=== PATIENT | female | born 1930 | race Caucasian/White ===

== ENCOUNTER 2020-11-18 22:39 | Inpatient (IN) | payer OTHER, MEDICARE, SELFPAY ==
[~2020-11-18] VITALS: Ht 152.4 cm; Wt 99.8 kg
--- NOTE | 2020-11-18 22:40 | NUR ---
PT ED ALS. TAKEN TO BED 2
--- NOTE | 2020-11-18 22:45 | NUR ---
PT CONNECTED TO THE PROFESSOR OF BUSINESS. PT ON 3 L NC. BED IS LOCKED AND IN LOWEST POSITION. NO ACUTE DISTRESS NOTED. SIDE RAILSX2 FOR ALOC AND PT PROTECTION. CALL LIGHT WITHIN REACH.
--- NOTE | 2020-11-18 22:45 | NUR ---
89 Y/O FEMALE BIBA FROM [facility] WITH CHIEF C/O INCREASING ALOC AND UNRESPONSIVENESS X1 WK. A/OX0. GCS 10. PERRL. NO UNLILATERAL DEFICITS NOTED. CAP REFILL<3. PULSES+2 THROUGHOUT. DIMINISHED LUNG SOUNDS THROUGHOUT. SINUS TACHY ON THE GAS DISTRIBUTION AND EMERGENCY CLERK. NO SOB NOTED. S1, S2, NOTED NO EXTRA HEART SOUNDS. NON PITTING EDEMA TO BILATERAL UPPER AND LOWER EXTREMITIES. REDNESS NOTED TO RIGHT UPPER EXTREMITY WITH NON PITTNG EDEMA. PER EMS NO N/V/DIARRHEA/FEVER AT [facility]. PMH:ACUTE RESP FAILURE, HTN, OSTEOARTHRITIS, DVT, CHRONIC PAIN SYNDROME. ALLERGIES: PENICILLINS, CEPHALEXIN, NEOSPORIN
[2020-11-18 22:52] VITALS: BP 170/88
--- NOTE | 2020-11-18 23:32 | NUR ---
EKG PERFORMED AT BEDSIDE. EKG READS SINUS TACHYCARDIA @ 114
--- NOTE | 2020-11-18 23:35 | NUR ---
S/W JAQUELINE, DAUGHTER TO GIVE BRIEF UPDATE. NUMBER PROVIDED---- [phone]
[2020-11-18 23:45] LABS: BASOPHILS % (AUTO) 0.2 % (0.0-2.0); EOSINOPHILS # (AUTO) 0.1 K/uL (0-0.4); EOSINOPHILS % (AUTO) 1.7 % (0.0-4.0); HEMATOCRIT 36.2 % (36-48); HEMOGLOBIN 11.6 g/dL (12.0-16.0); LYMPHOCYTES # (AUTO) 0.5 K/uL (2.5-16.5); LYMPHOCYTES % (AUTO) 7.3 % (20.5-51.1); MEAN CORPUSCULAR HEMOGLOBIN 26 pg (27-31); MEAN CORPUSCULAR HGB CONC 32 g/dL (33-37); MEAN CORPUSCULAR VOLUME 81.7 fL (80-94); MONOCYTES # (AUTO) 0.4 K/uL (0.8-1.0); MONOCYTES % (AUTO) 5.8 % (1.7-9.3); NEUTROPHILS # (AUTO) 6.4 K/uL (1.8-7.7); PLATELET COUNT (AUTO) 212 K/uL (140-450); RED BLOOD CELL COUNT(AUTO) 4.43 MIL/uL (4.20-5.40); RED CELL DISTRIBUTION WIDTH 15.9 % (11.6-13.7); WHITE BLOOD COUNT (AUTO) 7.5 K/uL (4.8-10.8)
--- NOTE | 2020-11-18 23:45 | NUR ---
PT IS ASLEEP AND SNORING. VISIBLE RISE AND FALL OF CHEST NOTED CONNECTED TO THE FOOD PRODUCTS SALES REPRESENTATIVE. PT ON 3 L NC. BED IS LOCKED AND IN LOWEST POSITION. NO ACUTE DISTRESS NOTED. SIDE RAILSX2 FOR ALOC AND PT PROTECTION. CALL LIGHT WITHIN REACH.
[2020-11-18] MEDS ORDERED: NACL 0.9% 1,000 ML IV ONE (23:50)
--- NOTE | 2020-11-19 | NUR ---
CALLED PT'S HOME FACILITY X3 TO GET A MEDICATION RECONCILATION WITH NO ANSWER. UNABLE TO COMPLETE MED REC AT THIS TIME.
[2020-11-19 00:05] LABS: ANION GAP 14.4 (8-16); ASPARTATE AMINOTRANSFERASE 12 U/L (15-37); CARBON DIOXIDE 27.1 mmol/L (21-32); CHLORIDE 101 mmol/L (98-107); CREATININE 1.2 mg/dL (0.6-1.3); GLUCOSE 133 mg/dL (74-106); POTASSIUM 3.5 mmol/L (3.5-5.1); SODIUM SERUM 139 mmol/L (136-145); TOTAL BILIRUBIN 0.4 mg/dL (0.0-1.0); UREA NITROGEN, BLOOD 28 mg/dL (7-18)
[2020-11-19 00:06] LABS: ACETAMINOPHEN < 0.5 ug/ml (10-30); SALICYLATE < 2.8 mg/dL (2.8-20.0)
--- NOTE | 2020-11-19 00:20 | NUR ---
LACTIC ACID 2.3
--- NOTE | 2020-11-19 00:30 | NUR ---
PT IS ASLEEP IN SEMI FOWLERS POSITION. VISIBLE RISE AND FALL OF CHEST NOTED, PT CONNECTED TO THE SENIOR SOFTWARE ENGINEER. PT ON 3 L NC. BED IS LOCKED AND IN LOWEST POSITION. NO ACUTE DISTRESS NOTED. SIDE RAILSX2 FOR ALOC AND PT PROTECTION. CALL LIGHT WITHIN REACH.
[2020-11-19] MEDS ORDERED: MEROPENEM 1,000 MG in NACL 0.9% 100 ML IV ONE (01:25)
--- NOTE | 2020-11-19 01:35 | NUR ---
INSERTED STRAIGHT CATHETER, 150 ML OF YELLOW URINE RETURNED. REMOVED STRAIGHT CATHETER, PT TOLERATED WELL.
[2020-11-19] MEDS ORDERED: MEROPENEM 1,000 MG VIAL IV ONE (01:52)
[2020-11-19 02:19] LABS: APPEARANCE,URINE CLEAR (CLEAR); BILIRUBIN,URINE NEGATIVE (NEGATIVE); BLOOD, URINE NEGATIVE (NEGATIVE); COLOR,URINE YELLOW (YELLOW); LEUKOCYTE ESTERASE ,URINE NEGATIVE (NEGATIVE); NITRITE, URINE NEGATIVE (NEGATIVE); PH,URINE 5.5 (5.0-9.0); UGLUCOSE NEGATIVE (NEGATIVE)
--- NOTE | 2020-11-19 02:41 | NUR ---
PT RETURNED FROM [facility]IA [facility].
[2020-11-19 02:55] LABS: BARBITURATE, URINE NEGATIVE ng/ml (NEG <=200); BENZODIAZEPINE, URINE POSITIVE ng/mL (NEG <=200); COCAINE, URINE NEGATIVE ng/mL (NEG <=300)
[2020-11-19 02:56] LABS: CANNABINOID, URINE NEGATIVE ng/mL (NEG <=50); OPIATE, URINE POSITIVE ng/mL (NEG <=2000); PHENCYCLIDINE SCREEN,URINE NEGATIVE ng/mL (NEG <=25)
--- NOTE | 2020-11-19 03:00 | NUR ---
PT CONNECTED TO THE DEPARTMENT OPERATIONS MANAGER. PT ON 3 L NC. BED IS LOCKED AND IN LOWEST POSITION. NO ACUTE DISTRESS NOTED. SIDE RAILSX2 FOR ALOC AND PT PROTECTION. CALL LIGHT WITHIN REACH.
--- NOTE | 2020-11-19 04:00 | NUR ---
PT IS SNORING, VISIBLE RISE AND FALL OF CHEST NOED.CONNECTED TO THE JAVASCRIPT SOFTWARE ENGINEER. PT ON 3 L NC. BED IS LOCKED AND IN LOWEST POSITION. NO ACUTE DISTRESS NOTED. SIDE RAILSX2 FOR ALOC AND PT PROTECTION. CALL LIGHT WITHIN REACH.
[2020-11-19] MEDS ORDERED: NALOXONE 0.4 MG/ML VIAL IVP ONE (04:05)
--- NOTE | 2020-11-19 04:39 | NUR ---
SPOKE WITH THE DAUGHTER JAQUELINE TO GIVE PT STATUS UPDATE
--- NOTE | 2020-11-19 05:00 | NUR ---
PT CONNECTED TO THE ADHESIVE BANDAGE MACHINE OPERATOR. PT ON 3 L NC. BED IS LOCKED AND IN LOWEST POSITION. NO ACUTE DISTRESS NOTED. SIDE RAILSX2 FOR ALOC AND PT PROTECTION. CALL LIGHT WITHIN REACH.
--- NOTE | 2020-11-19 06:00 | NUR ---
PT IS IN SEMI FOWLERS POSITION. NS RUNNING PER MD ORDERS. PT IS CONNECTED TO THE ASSISTANT PARALEGAL. PT ON 3 L NC. BED IS LOCKED AND IN LOWEST POSITION. NO ACUTE DISTRESS NOTED. SIDE RAILSX2 FOR ALOC AND PT PROTECTION. CALL LIGHT WITHIN REACH.
--- NOTE | 2020-11-19 06:50 | NUR ---
SPOKE WITH DANIELLE George FROM [facility] THAT THE PT IS FROM, UPDATED HER THAT THE PT IS STILL HERE AT THIS TIME.
--- NOTE | 2020-11-19 07:15 | NUR ---
RECEIVED ENDORSEMENT FROM MANUFACTURING INSPECTOR, AWAKE,ALERT,ORIENTEDX3, WITH O2 AT 4L/MIN VIA NC, [id number]% NOT IN DISTRESS NOTED, ADMITTED A CASE OF POLYPHARMACY ABUSE AND ENCEPHALOPATHY UNDER DR. MIJARES. WITH IV CANNULA G20 AT LEFT ON SALINE LOCK, SAFETY MEASURESIN PLACE AND CONTINUE MONITOR. SKIN IS INTACT
--- NOTE | 2020-11-19 07:15 | NUR ---
GAVE REPORT TO MALU HERNANDEZ FOR TRANSFER OF CARE AT THIS TIME
[2020-11-19] MEDS ORDERED: ZOLPIDEM 5 MG TAB PO PRN (07:50)
[2020-11-19] MEDS ORDERED: ONDANSETRON 4 MG/2 ML VIAL IVP PRN (07:50)
[2020-11-19] MEDS ORDERED: HYDROcodone/APAP 5/325 MG 1 TAB TAB PO PRN (07:50)
[2020-11-19] MEDS ORDERED: LORazepam 2 MG/ML VIAL IM/IVP PRN (07:50)
[2020-11-19] MEDS ORDERED: DOCUSATE SODIUM 100 MG GELCAP PO PRN (07:50)
[2020-11-19] MEDS ORDERED: MORPHINE SULFATE 2 MG/ML SYR IVP PRN (07:50)
[2020-11-19] MEDS ORDERED: ACETAMINOPHEN 325 MG TAB PO PRN (07:50)
[2020-11-19] MEDS ORDERED: bisacodyL 10 MG SUPP RC SCH (08:03)
[2020-11-19] MEDS: NACL 0.9% 1,000 ML IV SCH ×2 (08:10→17:22)
--- NOTE | 2020-11-19 08:45 | NUR ---
ENDORSED TO MST RN IN STABLE CONDITON FOR CONTINUITY OF CARE
[2020-11-19 09:00] VITALS: BP 117/79
--- NOTE | 2020-11-19 09:28 | NUR ---
RECEIVED PATIENT FROM ED NURSE, MARY. PATIENT AWAKE AND ALERT. ORIENTED TO PERSON AND PLACE. RESP EVEN AND UNLABORED ON 4L NC. DENIED OF DISCOMFORT AT THIS TIME. SPEECH IS SLOW BUT CLEAR. ABLE TO MAKE NEEDS KNOWN AND FOLLOW SIMPLE COMMANDS. LW 20G INFUSING NS 100ML/HR. SKIN WARM TO TOUCH AND INTACT. NOTED BRUISING BUT SKIN IS INTACT. LUNGS CLEAR. BOWEL SOUNDS PRESENT. NO NOTED EDEMA AT THIS TIME. MRSA COLLECTED AND SENT TO LAB. BED ALARM ACTIVATED. DR LOPES AT BEDSIDE. PLAN OF CARE DISCUSSED. PATIENT VERBALIZED UNDERSTANDING. HOB ELEVATED. CALL LIGHT WITHIN REACH. WILL CONTINUE TO MONITOR.
--- NOTE | 2020-11-19 09:31 | NUR ---
CALLED AND SPOKE TO PAYTON RN TEACHER AT [facility] AT [phone]. PATIENT RECENTLY RECEIVED COVID VACCINATION. LIST OF MEDICATIONS REQUESTED PER DR LOPES.
[2020-11-19] MEDS: POLYETHYLENE GLYCOL 17 GM/PKT PO SCH (09:41)
[2020-11-19 09:47] LABS: BASOPHILS % (AUTO) 0.2 % (0.0-2.0); EOSINOPHILS # (AUTO) 0.2 K/uL (0-0.4); HEMATOCRIT 35.2 % (36-48); HEMOGLOBIN 11.1 g/dL (12.0-16.0); LYMPHOCYTES # (AUTO) 0.5 K/uL (2.5-16.5); LYMPHOCYTES % (AUTO) 7.5 % (20.5-51.1); MEAN CORPUSCULAR HEMOGLOBIN 26 pg (27-31); MEAN CORPUSCULAR HGB CONC 32 g/dL (33-37); MEAN CORPUSCULAR VOLUME 82.1 fL (80-94); MONOCYTES # (AUTO) 0.5 K/uL (0.8-1.0); MONOCYTES % (AUTO) 7.5 % (1.7-9.3); NEUTROPHILS % (AUTO) 80.8 % (42.2-75.2); PLATELET COUNT (AUTO) 210 K/uL (140-450); RED BLOOD CELL COUNT(AUTO) 4.28 MIL/uL (4.20-5.40); RED CELL DISTRIBUTION WIDTH 15.9 % (11.6-13.7); WHITE BLOOD COUNT (AUTO) 6.2 K/uL (4.8-10.8)
[2020-11-19 10:00] LABS: ALBUMIN 2.8 g/dL (3.4-5.0); ASPARTATE AMINOTRANSFERASE 17 U/L (15-37); CARBON DIOXIDE 30.4 mmol/L (21-32); CHLORIDE 103 mmol/L (98-107); CREATININE 0.8 mg/dL (0.6-1.3); GLUCOSE 100 mg/dL (74-106); POTASSIUM 3.4 mmol/L (3.5-5.1); SODIUM SERUM 140 mmol/L (136-145); TOTAL BILIRUBIN 0.4 mg/dL (0.0-1.0); UREA NITROGEN, BLOOD 25 mg/dL (7-18)
--- NOTE | 2020-11-19 10:10 | NUR ---
LIST OF MEDICATIONS RECEIVED FROM [facility]. LIST GIVEN TO DR LOPES.
[2020-11-19 10:27] LABS: PROTHROMBIN TIME 11.3 secs (10.8-13.4)
[2020-11-19 10:38] LABS: FREE T4 (FREE THYROXINE) 1.12 ng/dL (0.76-1.46); MAGNESIUM 1.9 mg/dL (1.8-2.4); PHOSPHORUS 3.2 mg/dL (2.5-4.9); THYROID STIMULATING HORMONE 1.61 uIU/mL (0.34-3.74)
--- NOTE | 2020-11-19 11:46 | NUR ---
PATIENT IN BED AWAKE AND ALERT. ASKING FOR DAUGHTER TO BRING HER SHOES. PATIENT WANTS TO GET UP AND WALK BUT ENCOURAGED TO WAIT FOR PT ASSIST. PATIENT VERBALIZED UNDERSTANDING. RESP EVEN AND UNLABORED ON 4L NC. NO NOTED DISTRESS. CALL LIGHT WITHIN REACH. WILL CONTINUE TO MONITOR.
[2020-11-19 11:47] LABS: CHOL/HDL RATIO 3.6 (1-4.5)
[2020-11-19 12:00] VITALS: BP 128/80
--- NOTE | 2020-11-19 12:12 | NUR ---
PT C/O BODY GENERALIZED PAIN. MORPHINE GIVEN ORDERED. VITALS WNL. RESP EVEN AND UNLABORED. WILL CONTINUE TO MONITOR.
--- NOTE | 2020-11-19 13:11 | NUR ---
POTASSIUM 3.4, REPORTED TO DR LOPES. RECEIVED ORDER FOR KDUR 20 MEQ PO PRN FOR POTASSIUM LESS THAN 3.5, ORDER CARRIED OUT
[2020-11-19] MEDS: POTASSIUM CHLORIDE 10 MEQ TABER PO PRN (13:34)
--- NOTE | 2020-11-19 14:02 | NUR ---
SOCIAL WORK NOTE: Patient's Orientation Unable To Assess Information Provided By JAQUELINE GAMEZ - DAUGHTER Comments SW WAS UNABLE TO MEET PATIENT AT BEDSIDE. SW COMPLETED ASSESSMENT WITH PATIENT'S DAUGHTER. Human Resources Services Specialist, Realtionship and Phone Number JAQUELINE BARNETT [phone] [facility] Power of Courtroom Deputy No Does Patient Have a POLST No Identifying Problems No Social Work Triggers Is A Social Work Consult Needed No Mandate Report Filed No Explanation Of Identifying Problems PATIENT IS AN 89-YEAR-OLD FEMALE ADMITTED FOR METABOLIC ENCEPHALOPATHY. 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 PATIENT WAS ADMITTED FROM [facility]. Admitted From Assisted Living/Resident Hospice Provider [facility] - [phone] Pre-Admission Level Of Functioning Status Total Care Prior Resources/Services Used In Last 12 Months Board & Care Prior Resources/Service Comments PATIENT IS A RESIDENT OF [facility]. Prior DME No Prior DME Used Wheelchair Dialysis Comments N/A Living Situation Asst'd Living/[facility] Patient Had Caregiver No Home Support No Caregiver Issues Financial Issues No Known Financial Issue Referral To The Financial Counselor Needed No Factors/Needs No D/C Needs Identified Pt/Rep Participated In Discharge Plan Yes Patient/Family Agress With Discharge Plan Yes Discharge Plan Comments TENTATIVE DISCHARGE PLAN IS FOR PATIENT TO RETURN TO [facility]. DC Plan Status Initiated Addendum: 11/19/20 at 1513 by Cayetano WU MOSES CONTACTED PAYTON - ADMIN OF [facility] [phone] TO ASK IF PATIENT HAS ACCESS TO HER MEDICATION. PER PAYTON, AND PATIENT'S DAUGHTER, JAQUELINE MEENDERING [phone], [facility]. PAYTON AND JAQUELINE BOTH STATED THAT PATIENT'S MEDICATION HAS BEEN ADJUSTED AND THAT HER MORPHINE DOSE WAS DOUBLED TWO DAYS BEFORE HOSPITALIZATION. SW NOTIFIED RIGO SEARS.
--- NOTE | 2020-11-19 14:23 | NUR ---
PATIENT IN BED AWAKE AND ALERT. ORAL CARE PROVIDED. PATIENT WAS ASSISTED WITH NUTRITION. PATIENT HAS WEAKNESS IN HER RIGHT ARM AND UNABLE TO FEED SELF EFFECTIVELY. PATIENT TOLERATED WELL. ABLE TO MAKE NEEDS KNOWN. CALL LIGHT WITHIN REACH. WILL CONTINUE TO MONITOR.
--- NOTE | 2020-11-19 14:58 | NUR ---
DC PLANNIN YRS OLD FEMALE PATIENT WAS ADMITTED FROM [facility] ) WITH A DX OF METABOLIC ENCEPHALOPATHY, POLYPHARMACY ABUSE. PT HAS A HX OF CHRONIC RESPIRATORY FAILURE ON O2 , HTN, OSTEOPOROSIS, HIATAL HERNIA AND DVT. CXR SHOWED RIGHT INFRAHILAR ATELECTASIS VS SCARING. RAPID COVID TEST NEGATIVE AND PCR IS PENDING. CT HEAD NEGATIVE. CT ABD/PELVIS SHOWED COLONIC DIVERTICULOSIS AND XRAY OF RT SHOULDER SHOWED SUPERIOR MIGRATION OF THE NUMERAL HEAD RELATIVE TO THE GLENOID LIKELY REPRESENTING ROTATOR CUFF TEAR. CONSULTED WITH PULMO. DC PLAN TO GO BACK TO ASSISTED LIVING. CM TO FOLLOW Addendum: 11/20/[address] RN DC PLANNING: SPOKE WITH PT'S DAUGHTER JAQUELINE STATED HER MOTHER HAS NO ACCESS TO HER MEDICATIONS, SHE IS WITH PRE[facility]IOUS HOSPICE CARE, AND HER CONCERN IS THE FACILITY WON'T DO THE PHYSICAL THERAPY THEY ONLY DO THE VIDEO ZOOMING EXERCISE AND HER MOM WON'T GET AND BENEFIT FROM IT. I ASKED HER IF SHE WANTED HER TO GO TO ANOTHER FACILITY AND TO CONTINUE WITH THE HOSPICE , JAQUELINE STATED SHE IS TALKING TO HER PCP AND WILL DECIDE. I TRANSFERRED THE PHONE TO THE NURSE TO TALK TO HER MOM AND TO DISCUSS TO GO TO ANOTHER FACILITY TO GET PHYSICAL THERAPY. CM TO FOLLOW Addendum: 11/20/20 at 1441 by Janet Sheth CM LONG SANITATION WORKER CLEANING MACHINERY: SPOKE TO PATIENTS DAUGHTER TO DISCUSS SNF FOR PT. SHE IS CONCERNED WITH HER MOTHER GOING TO SNF BECAUSE OF A BAD EXPERIENCE PATIENT HAD BEFORE. SHE IS ALSO CONCERNED THAT IF PATIENT GOES TO SNF PATIENT WILL HAVE TO BE TAKEN OFF OF HOSPICE. SHE STATED THAT MEDICARE USED UP ALL OF SNF DAYS AND IF PATIENT GOES TO SNF THEY WILL HAVE TO PAY OUT OF POCKET. SHE WILL CONTACT [facility] TO SEE IF THEY HAVE ANY RESOURCES FOR PT Addendum: 11/20/20 at 1556 by Janet Sheth CM LONG SANITATION WORKER CLEANING MACHINERY: RECEIVED A PHONE CALL FROM PATIENTS DAUGHTER SHE SPOKE TO [facility]. THEY ARE ABLE TP ARRANGE HOME HEALTH FOR PT FOR PATIENT. Addendum: 11/22/20 at 1123 by Janet Sheth CM DC SANITATION WORKER CLEANING MACHINERY: SPOKE TO CHINMAY AT [facility] REGARDING DISCHARGE. THEY DO NOT PROVIDE TRANSPORTATION FOR PATIENT. SPOKE TO RIVET MACHINE OPERATOR [place] [facility] MAY USE [facility] FOR TRANSPORTATION. CHINMAY WAS CONCERNED WITH THE MRSA CONTACTED DR. LUCITA LUNDBERG STATED THAT IT WAS COLONIZED. Addendum: 11/22/20 at 1438 by Janet Sheth CM DC SANITATION WORKER CLEANING MACHINERY: PATIENT IS ABLE TO RETURN TO [facility]. SPOKE TO PATIENTS DAUGHTER TO LET HER KNOW THAT EVERYTHING HAS BEEN ARRANGED FOR PATIENT NOTIFIED MALU BRADY THAT MAORI PHYSIOTHERAPIST TIME IS 4:00 PM WITH [facility]
[2020-11-19 16:00] VITALS: BP 133/88
[2020-11-19] MEDS ORDERED: oxyCODONE 10 MG TABER PO PRN (16:15)
--- NOTE | 2020-11-19 16:18 | NUR ---
PATIENT HAS BEEN SCREENED AND CATEGORIZED MODERATE NUTRITION RISK. PATIENT WILL BE SEEN WITHIN 3-5 DAYS OF ADMISSION. 11/21/20 11/23/[address]
--- NOTE | 2020-11-19 17:05 | NUR ---
ROUTINE MEDICATIONS GIVEN. PATIENT TOLERATED WELL. FLUIDS GIVEN. NUTRITION OFFERED, BUT PATIENT REFUSED. PATIENT AWAKE AND ALERT. ABLE TO MAKE NEEDS KNOWN. DENIED OF PAIN AT THIS TIME. CALL LIGHT WITHIN REACH. WILL CONTINUE TO MONITOR.
[2020-11-19] MEDS: FAMOTIDINE 20 MG TAB PO SCH (17:20)
[2020-11-19] MEDS: GABAPENTIN 300 MG CAP PO SCH (17:20)
[2020-11-19] MEDS: rOPINIRole 0.25 MG TAB PO SCH (17:20)
[2020-11-19] MEDS: FUROSEMIDE 40 MG TAB PO SCH (17:20)
--- NOTE | 2020-11-19 19:15 | NUR ---
ENDORSED PATIENT TO NIGHT NURSE. PATIENT IN STABLE CONDITION.
[2020-11-19 20:00] VITALS: BP 107/66
[2020-11-19] MEDS: traZODone 50 MG TAB PO SCH (20:45)
[2020-11-19] MEDS: MORPHINE TAB ER 15 MG TABER PO SCH (20:47)
[2020-11-19] MEDS: ALPRAZolam 0.5 MG TAB PO SCH (20:49)
--- NOTE | 2020-11-19 21:00 | NUR ---
Received patient from am shit 0 s/s of distress even and unlabored chest rise. Patient complained of pain during assessment and when care was being provided and scheduled pain medications were given. After receiving scheduled medications there were 0 s/s of distress present and patient fell asleep. Patient pulled out her own IV line so a new line was placed on her right hand 22 G and it is patent infusing with 100ml NS. Patient is currently resting and will continue to monitor through out the shift.
[2020-11-20] VITALS: BP 114/95
--- NOTE | 2020-11-20 02:00 | NUR ---
Patient is currently sleeping with 0 s/s of distress at this time. Will continue to monitor for any changes all needs have been currently met.
[2020-11-20] MEDS: NACL 0.9% 1,000 ML IV SCH ×3 (03:50→23:50)
[2020-11-20 04:00] VITALS: BP 112/72
--- NOTE | 2020-11-20 06:50 | NUR ---
Patient is currently resting with 0 s/s of distress and no C/O discomfort. Will endorse further care to am shift for continuity of care.
[2020-11-20 07:10] LABS: BASOPHILS % (AUTO) 0.7 % (0.0-2.0); EOSINOPHILS # (AUTO) 0.5 K/uL (0-0.4); EOSINOPHILS % (AUTO) 7.2 % (0.0-4.0); HEMATOCRIT 34.7 % (36-48); LYMPHOCYTES # (AUTO) 0.8 K/uL (2.5-16.5); LYMPHOCYTES % (AUTO) 11.5 % (20.5-51.1); MEAN CORPUSCULAR HEMOGLOBIN 26 pg (27-31); MEAN CORPUSCULAR HGB CONC 32 g/dL (33-37); MEAN CORPUSCULAR VOLUME 81.3 fL (80-94); MONOCYTES # (AUTO) 0.5 K/uL (0.8-1.0); MONOCYTES % (AUTO) 6.9 % (1.7-9.3); NEUTROPHILS # (AUTO) 4.9 K/uL (1.8-7.7); NEUTROPHILS % (AUTO) 73.7 % (42.2-75.2); PLATELET COUNT (AUTO) 199 K/uL (140-450); RED BLOOD CELL COUNT(AUTO) 4.27 MIL/uL (4.20-5.40); RED CELL DISTRIBUTION WIDTH 16.2 % (11.6-13.7); WHITE BLOOD COUNT (AUTO) 6.6 K/uL (4.8-10.8)
--- NOTE | 2020-11-20 07:10 | NUR ---
REC'D REPORT FROM BOLOGNA MAKER NURSE, PT SLEEPING, 4L NC. R. THUMB 22 G, INFUSING NS AT 100ML/HR. NO SIGN OF DISTRESS, CALL LIGHT WITHIN REACH
[2020-11-20 07:12] LABS: ANION GAP 8.1 (8-16); CARBON DIOXIDE 34.2 mmol/L (21-32); CHLORIDE 103 mmol/L (98-107); CREATININE 0.7 mg/dL (0.6-1.3); GLUCOSE 85 mg/dL (74-106); POTASSIUM 3.3 mmol/L (3.5-5.1); SODIUM SERUM 142 mmol/L (136-145); UREA NITROGEN, BLOOD 14 mg/dL (7-18)
[2020-11-20 07:16] LABS: MAGNESIUM 1.8 mg/dL (1.8-2.4); PHOSPHORUS 2.3 mg/dL (2.5-4.9)
[2020-11-20 08:00] VITALS: BP 131/69
[2020-11-20] MEDS: LORATADINE 10 MG TAB PO SCH (08:45)
[2020-11-20] MEDS: GABAPENTIN 300 MG CAP PO SCH ×3 (08:46→17:43)
[2020-11-20] MEDS: RIVAROXABAN 10 MG TAB PO SCH (08:46)
[2020-11-20] MEDS: MORPHINE TAB ER 15 MG TABER PO SCH ×3 (08:47→21:34)
[2020-11-20] MEDS: FUROSEMIDE 40 MG TAB PO SCH ×2 (08:47→17:43)
[2020-11-20] MEDS: POLYETHYLENE GLYCOL 17 GM/PKT PO SCH (08:48)
--- NOTE | 2020-11-20 09:13 | NUR ---
ADMINISTERED MEDICATIONS PER MD ORDER, PT ABLE TO SWALLOW PILLS AND LIQUID MEDICATIONS, A/Ox3, STATED SHE CAN SELF FEED. PT TOLERATED PROCEDURE WELL. STATES SHE CURRENTLY DOES NOT HAVE PAIN AT THIS TIME, REFUSED MORPHINE PO MED, RETURNED TO PHARMACY. PT CALL LIGHT WITHIN REACH.
--- NOTE | 2020-11-20 11:30 | NUR ---
PT DAUGHTER JAQUELINE CALLED TO SPEAK TO MOTHER, CALLED DAUGHTER FROM HOSPITAL PHONE. PT ABLE TO SPEAK TO FAMILY MEMBER. STABLE
[2020-11-20 12:00] VITALS: BP 121/94
--- NOTE | 2020-11-20 13:01 | NUR ---
PT STABLE, NO SIGN OF DISTRESS ,CAN SELF FEED.
[2020-11-20] MEDS: POTASSIUM CHLORIDE 10 MEQ TABER PO PRN (14:47)
--- NOTE | 2020-11-20 15:09 | NUR ---
Good THUMB 24G IV SITE BECAME INFILTRATED, EDEMA, REMOVED IV CATHETER, INTACT. INFUSION STOPPED. WILL CONTINUE TO MONITOR
[2020-11-20 16:00] VITALS: BP 134/80
[2020-11-20] MEDS: FAMOTIDINE 20 MG TAB PO SCH (17:43)
[2020-11-20] MEDS: rOPINIRole 0.25 MG TAB PO SCH (17:44)
--- NOTE | 2020-11-20 18:00 | NUR ---
ATTEMPTED TO INSERT NEW IV CATHETER ON R. HAND ,UNSUCCESFUL ,PT REFUSED SECOND TRY. STATED SHE WOULD ONLY ALLOW A DOCTOR TO DO HER NEW IV. PT WAS INFORMED THAT DOCTOR WILL NOT DO CATHETER, STATED I COULD NOT TRY AGAIN, SAID SHE AND HER NEEDED TO BE LEFT ALONE IN ROOM TO EAT DINNER IN PRIVATE.
--- NOTE | 2020-11-20 19:15 | NUR ---
RECD. RESTING IN BED, AWAKE, A/OX1, VERY CONFUSED. RESPIRATION EVEN AND UNLABORED. PUT BACK CANNULA IN PLACED, ON 2 LITERS. REORIENTED TO HOSPITAL SETTING. VERBALIZED SHE WANTS TO BE LEFT ALONE, REFUSED TO EAT DINNER, OFFERED ASSISTANCE BUT STATED " I DON'T WANT TO EAT. MY IS WAITING FOR ME". NO IV LINE, RIGHT ARM AND HAND SWOLLEN. WILL TRY TO PUT A NEW ONE. MEDICATIONS AND CARE FOR THE NIGHT EXPLAINED. NEEDS REINFORCEMENT. DENIES PAIN 0/10.
--- NOTE | 2020-11-20 19:38 | NUR ---
Patient's Plan of Care was discussed and reviewed with DRAFTER CONSTRUCTION: KARMA PITTMAN
--- NOTE | 2020-11-20 19:38 | NUR ---
ENDORSED PT TO WOODEN FURNITURE POLISHER NURSE FOR CONTINUITY OF CARE. PT STABLE NO SIGN OF DISTRESS
[2020-11-20 20:00] VITALS: BP 120/76
--- NOTE | 2020-11-20 20:30 | NUR ---
RESTING IN BED, TOLD NURSE TO LEAVE HER ALONE. REFUSED NEW IV LINE INSERTION.
[2020-11-20] MEDS: ALPRAZolam 0.5 MG TAB PO SCH (21:33)
[2020-11-20] MEDS: traZODone 50 MG TAB PO SCH (21:33)
--- NOTE | 2020-11-20 21:35 | NUR ---
REFUSED TO EAT DINNER, BANANA OFFERED BUT ALSO REFUSED. WANTS NURSE TO GO AWAY. AGREED TO EAT ONE VANILLA PUDDING AND TAKE ALL HER NIGHT MEDICATIONS.
--- NOTE | 2020-11-20 22:00 | NUR ---
DAUGHTER CARIE CALLED, INFORMED PATIENT IS CONFUSED AND TELLING NURSES TO GO AWAY. AGREED TO EAT THE BANANA AFTER SPEAKING WITH DAUGHTER.
[2020-11-21] VITALS: BP 120/76
--- NOTE | 2020-11-21 | NUR ---
HAD MODERATE SOLID BM, BROWN COLOR. CLEANSED AND MADE COMFORTABLE IN BED WITH PILLOWS.
--- NOTE | 2020-11-21 01:00 | NUR ---
DAUGHTER CALLED AGAIN, INFORMED PATIENT IS ALREADY SLEEPING.
--- NOTE | 2020-11-21 02:30 | NUR ---
SLEEPING, COMFORTABLE IN BED.
[2020-11-21 04:00] VITALS: BP 125/75
--- NOTE | 2020-11-21 04:30 | NUR ---
NEW IV LINE INSERTED BY MALU DOMINGUEZ AT THE RIGHT FOREARM G4.
[2020-11-21] MEDS: NACL 0.9% 1,000 ML IV SCH ×3 (05:20→23:28)
--- NOTE | 2020-11-21 06:30 | NUR ---
STILL SLEEPING COMFORTABLY IN BED.
[2020-11-21 07:15] LABS: BASOPHILS % (AUTO) 0.5 % (0.0-2.0); EOSINOPHILS # (AUTO) 0.4 K/uL (0-0.4); EOSINOPHILS % (AUTO) 7.8 % (0.0-4.0); HEMATOCRIT 35.8 % (36-48); HEMOGLOBIN 11.2 g/dL (12.0-16.0); LYMPHOCYTES # (AUTO) 0.9 K/uL (2.5-16.5); LYMPHOCYTES % (AUTO) 17.4 % (20.5-51.1); MEAN CORPUSCULAR HEMOGLOBIN 26 pg (27-31); MEAN CORPUSCULAR HGB CONC 31 g/dL (33-37); MEAN CORPUSCULAR VOLUME 81.7 fL (80-94); MONOCYTES # (AUTO) 0.5 K/uL (0.8-1.0); MONOCYTES % (AUTO) 9.7 % (1.7-9.3); NEUTROPHILS # (AUTO) 3.4 K/uL (1.8-7.7); NEUTROPHILS % (AUTO) 64.6 % (42.2-75.2); PLATELET COUNT (AUTO) 234 K/uL (140-450); RED BLOOD CELL COUNT(AUTO) 4.38 MIL/uL (4.20-5.40); WHITE BLOOD COUNT (AUTO) 5.3 K/uL (4.8-10.8)
--- NOTE | 2020-11-21 07:20 | NUR ---
ENDORSED TO AM SHIFT NURSE FOR CONTINUITY OF CARE.
--- NOTE | 2020-11-21 07:25 | NUR ---
RECEIVED PT FROM ASSEMBLER SANDAL PARTS NURSEKARMA, PT IS AWAKE AND LYING ON THE BED WITH SIDE RAILS UP AND CALL LIGHT WITHIN REACH, IV LINE NOTED ON THE RT UPPER ARM G. 21 WITH IVF NS INFUSING AT 60ML/HR, PT IS ON RA AND DENIES PAIN, RT LOWER ARM IS EDEMATOUS, NO SIGN OF DISTRESS NOTED AND WILL CONTINUE TO MONITOR PT.
[2020-11-21 08:00] VITALS: BP 112/65
[2020-11-21 09:02] LABS: ANION GAP 6.8 (8-16); CARBON DIOXIDE 35.5 mmol/L (21-32); CHLORIDE 102 mmol/L (98-107); CREATININE 0.7 mg/dL (0.6-1.3); GLUCOSE 90 mg/dL (74-106); POTASSIUM 3.3 mmol/L (3.5-5.1); SODIUM SERUM 141 mmol/L (136-145); UREA NITROGEN, BLOOD 15 mg/dL (7-18)
[2020-11-21 09:08] LABS: MAGNESIUM 1.8 mg/dL (1.8-2.4); PHOSPHORUS 2.9 mg/dL (2.5-4.9)
[2020-11-21] MEDS: POLYETHYLENE GLYCOL 17 GM/PKT PO SCH (09:48)
[2020-11-21] MEDS: GABAPENTIN 300 MG CAP PO SCH ×3 (09:49→16:52)
[2020-11-21] MEDS: RIVAROXABAN 10 MG TAB PO SCH (09:51)
[2020-11-21] MEDS: FUROSEMIDE 40 MG TAB PO SCH ×2 (09:51→16:52)
--- NOTE | 2020-11-21 09:51 | NUR ---
PT WAS GIEN THE SCHEDULED AM MEDICATIONS NOW, WAS ASSISTED WITH FEEDING AND WILL CONTINUE TO BE MONITORED
[2020-11-21] MEDS: MORPHINE TAB ER 15 MG TABER PO SCH ×2 (09:52→20:34)
[2020-11-21] MEDS: LORATADINE 10 MG TAB PO SCH (10:00)
[2020-11-21] MEDS: MUPIROCIN CA NASAL 2% 1GM TUBE NS SCH (11:58)
[2020-11-21] MEDS: CHLORHEXADINE GLUC 2% CLOTH TP SCH (11:59)
--- NOTE | 2020-11-21 11:59 | NUR ---
PT WAS GIVEN BACTROBAN OINTMENT FIRST DOSE AND CHLORHEXIDINE FOR MRSA OF NARES. WILL MONITOR PT.
[2020-11-21 12:00] VITALS: BP 105/67
--- NOTE | 2020-11-21 12:10 | NUR ---
PT WAS GIVEN THE SCHEDULED MEDICATION NOW, WILL MONITOR PT.
[2020-11-21] MEDS: POTASSIUM CHLORIDE 10 MEQ TABER PO PRN (13:19)
--- NOTE | 2020-11-21 13:19 | NUR ---
K-DUR WAS GIVEN TO PT NOW FOR K LEVEL OF 3.3, WILL CONTINUE TO MONITOR PT.
[2020-11-21 16:00] VITALS: BP 102/68
[2020-11-21] MEDS: FAMOTIDINE 20 MG TAB PO SCH (16:52)
--- NOTE | 2020-11-21 16:52 | NUR ---
PT WAS GIVEN THE SCHEDULED MEDICATIONS, TOLERATED AND PARAMETER CHECKED, WILL CONTINUE TO MONITOR PT.
[2020-11-21] MEDS: rOPINIRole 0.25 MG TAB PO SCH (17:53)
--- NOTE | 2020-11-21 17:53 | NUR ---
SCHEDULED MEDICATION WAS GIVEN TO PT NOW.
--- NOTE | 2020-11-21 19:30 | NUR ---
ENDORSED PT TO MERCHANDISING SPECIALIST NURSE FOR CONTINUITY OF CARE.
[2020-11-21 20:00] VITALS: BP 103/57
[2020-11-21] MEDS: traZODone 50 MG TAB PO SCH (20:34)
[2020-11-21] MEDS: ALPRAZolam 0.5 MG TAB PO SCH (20:34)
[2020-11-22] MEDS: NACL 0.9% 1,000 ML IV SCH ×2 (03:29→13:03)
[2020-11-22 04:00] VITALS: BP 115/69
[2020-11-22 06:40] LABS: BASOPHILS % (AUTO) 0.5 % (0.0-2.0); EOSINOPHILS # (AUTO) 0.4 K/uL (0-0.4); EOSINOPHILS % (AUTO) 7.4 % (0.0-4.0); HEMOGLOBIN 11.4 g/dL (12.0-16.0); LYMPHOCYTES % (AUTO) 18.2 % (20.5-51.1); MEAN CORPUSCULAR HEMOGLOBIN 26 pg (27-31); MEAN CORPUSCULAR HGB CONC 32 g/dL (33-37); MEAN CORPUSCULAR VOLUME 81.5 fL (80-94); MONOCYTES # (AUTO) 0.5 K/uL (0.8-1.0); MONOCYTES % (AUTO) 8.6 % (1.7-9.3); NEUTROPHILS # (AUTO) 3.7 K/uL (1.8-7.7); NEUTROPHILS % (AUTO) 65.3 % (42.2-75.2); PLATELET COUNT (AUTO) 219 K/uL (140-450); RED BLOOD CELL COUNT(AUTO) 4.42 MIL/uL (4.20-5.40); WHITE BLOOD COUNT (AUTO) 5.7 K/uL (4.8-10.8)
[2020-11-22 06:59] LABS: ANION GAP 10.4 (8-16); CHLORIDE 103 mmol/L (98-107); CREATININE 0.7 mg/dL (0.6-1.3); GLUCOSE 89 mg/dL (74-106); POTASSIUM 3.4 mmol/L (3.5-5.1); SODIUM SERUM 143 mmol/L (136-145); UREA NITROGEN, BLOOD 11 mg/dL (7-18)
--- NOTE | 2020-11-22 07:05 | NUR ---
No significant changes over night. Patient had difficulty swallowing when taking medications whole. Recommend crushing meds with applesauce and swallow eval.
[2020-11-22 08:00] VITALS: BP 130/67
[2020-11-22] MEDS ORDERED: FERR325E14 PO (11:34)
[2020-11-22] MEDS: POLYETHYLENE GLYCOL 17 GM/PKT PO SCH (11:38)
[2020-11-22] MEDS: LORATADINE 10 MG TAB PO SCH (11:39)
[2020-11-22] MEDS: MORPHINE TAB ER 15 MG TABER PO SCH (11:39)
[2020-11-22] MEDS: GABAPENTIN 300 MG CAP PO SCH ×2 (11:40→13:03)
[2020-11-22] MEDS: RIVAROXABAN 10 MG TAB PO SCH (11:40)
[2020-11-22] MEDS: FUROSEMIDE 40 MG TAB PO SCH (11:40)
[2020-11-22] MEDS: MUPIROCIN CA NASAL 2% 1GM TUBE NS SCH (11:41)
[2020-11-22] MEDS: CHLORHEXADINE GLUC 2% CLOTH TP SCH (11:41)
[2020-11-22 12:00] VITALS: BP 110/61
[2020-11-22] MEDS: POTASSIUM CHLORIDE 10 MEQ TABER PO PRN (13:03)
--- NOTE | 2020-11-22 16:17 | NUR ---
Patient discharged home and education given to daughter and boarding care sales representative education courses Ashlee. All questions regarding discharge answered.
== END 2020-11-22 16:30 | disposition home health service (06) | DRG 917 ==
LOC: MED 22:39 → MTU 11-19 04:45
PROVIDERS: ADMIT Family Medicine; ATTEND Family Medicine
DX: T42.4X1A Poisoning by benzodiazepines, accidental (unintentional), initial encounter (principal); E43 Unspecified severe protein-calorie malnutrition; J96.21 Acute and chronic respiratory failure with hypoxia; G92 Toxic encephalopathy; E87.1 Hypo-osmolality and hyponatremia; Z20.822 Contact with and (suspected) exposure to COVID-19; E78.5 Hyperlipidemia, unspecified; I10 Essential (primary) hypertension; K21.9 Gastro-esophageal reflux disease without esophagitis; K44.9 Diaphragmatic hernia without obstruction or gangrene; E86.0 Dehydration; E78.00 Pure hypercholesterolemia, unspecified; G89.4 Chronic pain syndrome; M85.80 Other specified disorders of bone density and structure, unspecified site; M81.0 Age-related osteoporosis without current pathological fracture; T40.601A Poisoning by unspecified narcotics, accidental (unintentional), initial encounter; Z86.718 Personal history of other venous thrombosis and embolism; Z88.1 Allergy status to other antibiotic agents; Z88.0 Allergy status to penicillin; Y92.89 Other specified places as the place of occurrence of the external cause
CPT/HCPCS: 36415; 70450; 71045; 73030; 80048; 80053; 80305; 81003; 82150; 82550; 83036; 83605; 83690; 83735; 83880; 84100; 84439; 84443; 84484; 85025; 85610; 85730; 87040; 87081; 87086; 93005; 96361; 96365; 96375; 97110; 97163-GP; 97530; 99285; G0480; G0482; J2185; J2270; J2310; J7030; U0003